=== PATIENT | female | born 1985 | race Caucasian/White ===

== ENCOUNTER → 2016-12-18 | Outpatient (CLI) | payer OTHER ==
[~2016-12-18] MED LIST: DICLEGIS PO; GLUCOPHAGE500 MG/TAB PO; IBU600 MG; MOTRIN 600600 MG/TAB PO; PERCOCET 325 MG1 TA2 PO; PRENATAL1 TA1 PO; SENOKOT S 50 MG1 TAB PO; YAZ 28 3 MG-0.01 TAB PO; ZYRTEC ALLERGY10 MG PO
== END ==
LOC: COL.RAD 08:54
DX: N20.0 Calculus of kidney (principal); Z97.5 Presence of (intrauterine) contraceptive device

== ENCOUNTER 2018-02-19 10:55 | Day surgery (SDC) | payer OTHER ==
[~2018-02-19] VITALS: Ht 165.1 cm; Wt 64.5 kg
[2018-02-19] VITALS (7 sets, daily range): BP systolic 87–113; BP diastolic 46–67; PULSE 48–85; TEMP 98.5
[2018-02-19 11:57] LABS: HEMATOCRIT 38.4 % (37.0-47.0); MEAN CELL VOLUME 85 fl (80.0-100.0); MEAN CORPUSCULAR HEMOGLOBIN 29 pg (27.0-31.0); MEAN CORPUSCULAR HGB CONC 34 g/dl (33.0-37.0); MEAN PLATELET VOLUME 10.5 fl (7.4-10.4); PLATELET COUNT 291 K/mm3 (130-400); RED BLOOD COUNT 4.51 M/mm3 (4.10-5.30); REDCELL DISTRIBUTION WIDTH-CV 13.1 % (11.5-14.5)
[2018-02-19] MEDS ORDERED: AMBIEN 5MG TABLE5 MG PO (12:04)
[2018-02-19] MEDS ORDERED: MOTRIN 800800 MG/TAB PO (12:12)
[2018-02-19] MEDS ORDERED: PERCOCET 325 MG1 TA2 PO (12:13)
[2018-02-19] MEDS ORDERED: ULTRAM 50MG TAB50 MG PO (12:23)
== END 2018-02-19 15:25 | disposition home or self-care (01) ==
LOC: SDCO 10:55
PROVIDERS: Obstetrics & Gynecology
DX: O02.1 Missed abortion (principal); E28.2 Polycystic ovarian syndrome; J30.2 Other seasonal allergic rhinitis; G43.909 Migraine, unspecified, not intractable, without status migrainosus; Z79.84 Long term (current) use of oral hypoglycemic drugs; Z90.49 Acquired absence of other specified parts of digestive tract; Z88.0 Allergy status to penicillin; Z88.8 Allergy status to other drugs, medicaments and biological substances
CPT/HCPCS: J2250; J2704; J3010; J7120

== ENCOUNTER 2019-06-24 08:22 | Inpatient (IN) | payer OTHER ==
[~2019-06-24] VITALS: Ht 165.1 cm; Wt 81.4 kg
[2019-06-24] VITALS (20 sets, daily range): BP systolic 97–129; BP diastolic 52–79; PULSE 63–85; TEMP 98.4–99.1
[~2019-06-24 08:22] MED LIST changes: +AMBIEN 5MG TABLE5 MG PO; +MOTRIN 800800 MG/TAB PO; +ULTRAM 50MG TAB50 MG PO
[2019-06-24] MEDS ORDERED: COLACE 100100 MG/CAP PO (08:58)
[2019-06-24] MEDS ORDERED: PRENATAL TABLET PO (08:58)
[2019-06-24 08:59] LABS: BASO % 0.4 % (0.0-2.0); EOS % 0.2 % (0-4.0); GRAN # 7.1 (1.4-6.5); GRAN % 77.8 % (42.2-75.2); HEMOGLOBIN 12.1 g/dl (12.5-16.0); LYMPH # 1.2 (1.2-3.4); LYMPH % 13.1 % (20.0-51.0); MEAN CELL VOLUME 90 fl (80.0-100.0); MEAN CORPUSCULAR HEMOGLOBIN 30 pg (27.0-31.0); MEAN CORPUSCULAR HGB CONC 33 g/dl (33.0-37.0); MEAN PLATELET VOLUME 11.5 fl (7.4-10.4); MONO # 0.7 (0.1-0.6); MONO % 7.2 % (1.7-9.3); PLATELET COUNT 177 K/mm3 (130-400); RED BLOOD COUNT 4.08 M/mm3 (4.10-5.30); REDCELL DISTRIBUTION WIDTH-CV 13.6 % (11.5-14.5)
--- NOTE | 2019-06-24 09:00 | NUR ---
0830- Pt arrives on unit ambulatory with complaints of UCs since 0600 today. Pt changes into gown. 0832- Pt into bed, EFM and TOCO on and tracing. Pt denies VB, LOF. +FM. States UCs every 5-10mins. 0835- SVE /-2, intact. Dr Lee at nurses station, updated on status, VORB received and entered by this RN. CLIVE Petit called for epidural. 0845- IV start, labs obtained. IVF bolus initiated for epidural placement. Consents explained and signed. Assessment completed.
[2019-06-24 09:15] LABS: HEMATOCRIT 36.8 % (37.0-47.0)
--- NOTE | 2019-06-24 10:15 | NUR ---
1001- Deep variable noted down to 60 bpm, lasting approximately 60 sec. This RN at bedside, SVE performed. Pt repositioned to LL, EFM and TOCO adjusted.
--- NOTE | 2019-06-24 10:49 | NUR ---
1035- SVE per MD request by this RN, 0. MD called and updated, Dr Lee called and updated, heading to hospital for delivery. 1042- Dr Lee at bedside. Pt and room set up for delivery. 1045- Pt begins pushing with UC. MD remains at bedside. 1047- Bladder emptied by MD using red dominick. 1049- of viable male . To mother's and where tended to by Lavern Garcia, nursery RN. Cord blood obtained. 1052- Spontaneous delivery of placenta, Pitocin started at 333ml/hr. 2nd degree laceration repaired by . Pericare completed. Clean chux and ice pack to perineum. Pt tolerated well.
[2019-06-24] MEDS ORDERED: MOTRIN 800800 MG/TAB PO (21:37)
[2019-06-25 03:40] VITALS: BP 108/69; PULSE 66; TEMP 97.7
[2019-06-25 07:45] VITALS: BP 104/58; PULSE 83; TEMP 98.2
[2019-06-25] MEDS ORDERED: NEWMANS TOP (10:13)
== END 2019-06-25 12:50 | disposition home or self-care (01) | DRG 807 ==
LOC: LDRO 08:22 → LDR 08:35 → OB 08:35
PROVIDERS: ADMIT Obstetrics & Gynecology
PROC: 10E0XZZ Delivery of Products of Conception, External Approach (ICD-10-PCS; principal; 2019-06-24)
PROC: 0KQM0ZZ Repair Perineum Muscle, Open Approach (ICD-10-PCS; 2019-06-24)
DX: O99.284 Endocrine, nutritional and metabolic diseases complicating childbirth (principal); Z37.0 Single live birth; E28.2 Polycystic ovarian syndrome; O99.354 Diseases of the nervous system complicating childbirth; G43.909 Migraine, unspecified, not intractable, without status migrainosus; O70.1 Second degree perineal laceration during delivery; Z3A.39 39 weeks gestation of pregnancy
CPT/HCPCS: J2590; J2795; J7120

== ENCOUNTER 2022-05-06 12:50 | Emergency (ER) | payer OTHER ==
[~2022-05-06] VITALS: Ht 165.1 cm; Wt 66.4 kg
[~2022-05-06 12:50] MED LIST changes: +COLACE 100100 MG/CAP PO; +NEWMANS TOP; +PRENATAL TABLET PO
[2022-05-06 12:58] VITALS: BP 103/71; PULSE 92; TEMP 98.6
== END 2022-05-06 14:00 | disposition home or self-care (01) ==
LOC: COL.ER 12:50
DX: R09.89 Other specified symptoms and signs involving the circulatory and respiratory systems (principal); Z28.311 Partially vaccinated for COVID-19